=== PATIENT | male | born 1960 | race Caucasian/White ===

== ENCOUNTER 2016-12-27 08:05 | Day surgery (SDC) | payer OTHER ==
[2016-12-21 09:01] VITALS: BP 116/79
[~2016-12-27] VITALS: Ht 172.7 cm; Wt 110.5 kg
[~2016-12-27 08:05] MED LIST: HYDR-3241 PO; IBUP800T PO; LIDOCAINE 0.5%-EPI 1:200K, 50ML ONE; LIDOCAINE/PF 1%-EPI 1:200K, 30ML ONE; LISI-167 PO; ROPIvacaine/PF 0.5%, 30 ML ONE; TOPI100T94 PO; TRAZ50TA18 PO
[2016-12-27] MEDS ORDERED: LACTATED RINGERS 1,000 ML IV SCH (08:37)
[2016-12-27] MEDS ORDERED: FENTANYL PF 250 MCG/5ML ONE (08:39)
[2016-12-27 08:40] VITALS: BP 116/79
[2016-12-27] MEDS ORDERED: MIDAZOLAM 1 MG/ML, 2ML ONE (08:40)
[2016-12-27] MEDS ORDERED: HYDROcodone/APAP 7.5-325MG/15ML UDC PO PRN (09:30)
[2016-12-27] MEDS ORDERED: MEPERIDINE/PF 25MG/0.5ML IVPush PRN (09:30)
[2016-12-27] MEDS ORDERED: hydrALAzine 20 MG/ML, 1ML IV PRN (09:30)
[2016-12-27] MEDS ORDERED: ONDANSETRON 2MG/ML, 2ML IVPush PRN (09:30)
[2016-12-27] MEDS ORDERED: OXYcodone 5 MG/5 ML ORAL.SOL UDC PO PRN (09:30)
[2016-12-27] MEDS ORDERED: FENTANYL PF 100 MCG/2ML IV PRN (09:30)
[2016-12-27] MEDS ORDERED: EPHEDRINE 50 MG/ML, 1ML IVPush PRN (09:30)
[2016-12-27] MEDS ORDERED: LABETALOL 5MG/ML, 20ML IV PRN (09:30)
[2016-12-27] MEDS ORDERED: MIDAZOLAM 1 MG/ML, 2ML IV PRN (09:30)
[2016-12-27] MEDS ORDERED: ACETAMINOPHEN 325 MG TABLET PO PRN (09:30)
[2016-12-27] MEDS ORDERED: HYDROmorphone 1 MG/ML, 1ML IV PRN (09:30)
[2016-12-27] MEDS ORDERED: PROMETHAZINE 25 MG/ML, 1ML IV PRN (09:30)
[2016-12-27] MEDS ORDERED: FENTANYL PF 100 MCG/2ML ONE (10:08)
[2016-12-27] MEDS ORDERED: HYDROcodone/APAP 7.5-325MG/15ML UDC ONE (10:09)
[2016-12-27] MEDS ORDERED: CEFAZOLIN 1,000 MG ONE (11:06)
[2016-12-27] MEDS ORDERED: ONDANSETRON 2MG/ML, 2ML ONE (11:06)
[2016-12-27] MEDS ORDERED: KETOROLAC 30 MG/1 ML ONE (11:06)
[2016-12-27] MEDS ORDERED: DEXAMETHASONE 4 MG/ML, 1ML ONE (11:06)
[2016-12-27] MEDS ORDERED: LABETALOL 5MG/ML 40ML VIAL ONE (11:06)
[2016-12-27] MEDS ORDERED: PROPOFOL 10 MG/ML, 20ML ONE (11:06)
== END 2016-12-27 12:10 | disposition home or self-care (01) ==
LOC: OUT 08:05
PROVIDERS: ATTEND Orthopaedic Surgery
DX: S83.232A Complex tear of medial meniscus, current injury, left knee, initial encounter (principal); M94.262 Chondromalacia, left knee; M65.862 Other synovitis and tenosynovitis, left lower leg; W01.0XXA Fall on same level from slipping, tripping and stumbling without subsequent striking against object, initial encounter; Y93.9 Activity, unspecified; Y92.9 Unspecified place or not applicable; Y99.9 Unspecified external cause status; I10 Essential (primary) hypertension; G47.33 Obstructive sleep apnea (adult) (pediatric); M50.20 Other cervical disc displacement, unspecified cervical region
CPT/HCPCS: 29881; J0690; J1100; J1885; J2250; J2405; J2704; J2795; J3010; J3490; J7120

== ENCOUNTER → 2017-08-22 | Outpatient (CLI) | payer OTHER ==
[~2017-08-22] MED LIST changes: +CYAN1TAB29 PO; +GABA300C10 PO; +IBUP-1223 PO; -IBUP800T PO; -LIDOCAINE 0.5%-EPI 1:200K, 50ML ONE; -LIDOCAINE/PF 1%-EPI 1:200K, 30ML ONE; -ROPIvacaine/PF 0.5%, 30 ML ONE; +TOPI100T8 PO; -TOPI100T94 PO; +zinc PO
[2017-08-22 14:03] LABS: BASOPHILS # (AUTO) 0.02 x10^3/uL (0-0.1); BASOPHILS % (AUTO) 0 % (0-1); EOSINOPHILS # (AUTO) 0.12 x10^3/uL (0-0.4); EOSINOPHILS % (AUTO) 1 % (1-7); LYMPHOCYTES # (AUTO) 1.25 x10^3/uL (1-3.4); LYMPHOCYTES % (AUTO) 14 % (22-44); MD NO; MEAN CORPUSCULAR HEMOGLOBIN 30.9 pg (27.5-34.5); MEAN CORPUSCULAR HGB CONC 33.7 g/dL (33.2-36.2); MEAN CORPUSCULAR VOLUME 91.9 fL (81-97); MONOCYTES # (AUTO) 0.67 x10^3/uL (0.2-0.8); MONOCYTES % (AUTO) 8 % (2-9); NEUTROPHILS # (AUTO) 6.81 x10^3/uL (1.8-6.8); NEUTROPHILS % (AUTO) 77 % (42-75); PLATELET COUNT 224 x10^3/uL (130-400); RED BLOOD COUNT 5.34 x10^6/uL (4.38-5.82); RED CELL DISTRIBUTION WIDTH 14.5 % (9.4-14.8)
[2017-08-22 14:15] LABS: ALBUMIN 3.9 g/dL (3.4-5.0); ANION GAP 9 mmol/L (5-15); CALCIUM 9.4 mg/dL (8.5-10.1); CHLORIDE 107 mmol/L (98-107)
[2017-08-22 14:19] LABS: ALANINE AMINOTRANSFERASE 30 U/L (12-78); ALKALINE PHOSPHATASE 61 U/L (45-117); BILIRUBIN,TOTAL 0.6 mg/dL (0.2-1.0); TOTAL PROTEIN 7.5 g/dL (6.4-8.2)
[2017-08-22 14:50] LABS: PROTHROMBIN TIME 10.4 Seconds (9.6-11.5)
== END | disposition home or self-care (01) ==
LOC: STAR 12:59
PROVIDERS: ATTEND Neurological Surgery
DX: Z01.818 Encounter for other preprocedural examination (principal); M48.02 Spinal stenosis, cervical region; J98.11 Atelectasis
CPT/HCPCS: 36415; 71046; 80053; 85025; 85610; 85730; 93005

== ENCOUNTER 2017-09-05 05:37 | Inpatient (IN) | payer OTHER ==
[2017-08-22 13:29] VITALS: BP 146/93
[~2017-09-05] VITALS: Ht 172.7 cm; Wt 110.0 kg
[2017-09-05] MEDS ORDERED: LACTATED RINGERS 1,000 ML IV SCH (06:27)
[2017-09-05] MEDS ORDERED: LIDOCAINE 1%, 2ML SQ PRN (06:30)
[2017-09-05] MEDS ORDERED: LIDOCAINE 1%, 2ML ONE (06:32)
[2017-09-05] MEDS ORDERED: BUPIVACAINE/PF 0.5% ONE (06:41)
[2017-09-05] MEDS ORDERED: EPINEPHRINE 1 MG/ML, 1ML ONE (06:42)
[2017-09-05] MEDS ORDERED: THROMBIN 5,000 UNIT VIAL TP ONE (06:42)
[2017-09-05] MEDS ORDERED: BACITRACIN 50,000 UNIT ONE (06:42)
[2017-09-05] MEDS ORDERED: PROPOFOL 50 ML ONE ×2 (07:01→08:59)
[2017-09-05] MEDS ORDERED: MIDAZOLAM 1 MG/ML, 2ML ONE (07:01)
[2017-09-05] MEDS ORDERED: FENTANYL PF 250 MCG/5ML ONE (07:01)
[2017-09-05] MEDS ORDERED: MEPERIDINE/PF 25MG/0.5ML IVPush PRN (07:30)
[2017-09-05] MEDS ORDERED: LORazepam 2 MG/ML, 1ML IVPush PRN (07:30)
[2017-09-05] MEDS ORDERED: ACETAMINOPHEN 325 MG TABLET PO PRN (07:30)
[2017-09-05] MEDS ORDERED: HYDROcodone/APAP 7.5-325MG/15ML UDC PO PRN (07:30)
[2017-09-05] MEDS ORDERED: ONDANSETRON 2MG/ML, 2ML IVPush PRN (07:30)
[2017-09-05] MEDS ORDERED: OXYcodone 5 MG/5 ML ORAL.SOL UDC PO PRN (07:30)
[2017-09-05] MEDS ORDERED: PROMETHAZINE 25 MG/ML, 1ML IV PRN (07:30)
[2017-09-05] MEDS ORDERED: HYDROmorphone 1 MG/ML, 1ML IV PRN (07:30)
[2017-09-05] MEDS ORDERED: LABETALOL 5MG/ML, 20ML IV PRN (07:30)
[2017-09-05] MEDS ORDERED: hydrALAzine 20 MG/ML, 1ML IV PRN (07:30)
[2017-09-05] MEDS ORDERED: HYDROmorphone 2 MG/ML, 1ML ONE (08:07)
[2017-09-05] MEDS ORDERED: NEOSTIGMINE 1 MG/ML, 10ML ONE (08:26)
[2017-09-05] MEDS ORDERED: SUCCINYLCHOLINE 20 MG/ML, 10ML ONE (08:26)
[2017-09-05] MEDS ORDERED: ONDANSETRON 2MG/ML, 2ML ONE (08:26)
[2017-09-05] MEDS ORDERED: GLYCOPYRROLATE 0.2MG/1ML, 5ML ONE (08:26)
[2017-09-05] MEDS ORDERED: DEXAMETHASONE 4 MG/ML, 1ML ONE (08:26)
[2017-09-05] MEDS ORDERED: CEFAZOLIN 1,000 MG ONE (08:26)
[2017-09-05] MEDS ORDERED: ROCURONIUM 10 MG/ML,10ML ONE (08:26)
[2017-09-05] MEDS ORDERED: PROPOFOL 10 MG/ML, 20ML ONE (08:26)
[2017-09-05] MEDS ORDERED: ACETAMINOPHEN 650 MG/20.3 ML UDC ONE (10:51)
[2017-09-05] MEDS ORDERED: OXYcodone 5 MG/5 ML ORAL.SOL UDC ONE (10:52)
[2017-09-05] MEDS: FENTANYL PF 100 MCG/2ML IV PRN ×2 (10:56→11:25)
[2017-09-05] MEDS ORDERED: FENTANYL PF 100 MCG/2ML ONE (10:59)
[2017-09-05] MEDS ORDERED: HYDROmorphone 2 MG/ML, 1ML IM PRN (13:00)
[2017-09-05] MEDS ORDERED: ONDANSETRON 2MG/ML, 2ML IV PRN (13:00)
[2017-09-05] MEDS ORDERED: BISACODYL 10 MG SUPP PR PRN (13:00)
[2017-09-05] MEDS ORDERED: MAGNESIUM HYDROXIDE 8%, 30ML UDC PO PRN (13:00)
[2017-09-05] MEDS ORDERED: OXYcodone/APAP 5/325MG TABLET PO PRN (13:00)
[2017-09-05] MEDS ORDERED: TRAZODONE 100MG TABLET PO PRN (13:00)
[2017-09-05] MEDS ORDERED: HYDROcodone/APAP 5/325 TABLET PO PRN (13:00)
[2017-09-05] MEDS ORDERED: METHOCARBAMOL 750 MG TABLET PO PRN (13:00)
[2017-09-05] MEDS ORDERED: DIPHENHYDRAMINE 50 MG/ML, 1ML IM PRN (13:00)
[2017-09-05] MEDS ORDERED: PROMETHAZINE 25 MG/ML, 1ML IM PRN (13:00)
[2017-09-05] MEDS ORDERED: DIPHENHYDRAMINE 50 MG CAPSULE PO PRN (13:00)
[2017-09-05] MEDS: CEFAZOLIN PMX 1GM/50ML 50 ML IVPB SCH (17:17)
[2017-09-05] MEDS: NS + 20MEQ KCL 1,000 ML IV SCH (17:17)
[2017-09-05 20:18] VITALS: BP 145/81
[2017-09-05] MEDS ORDERED: ZOLPIDEM 5MG TABLET PO PRN (21:00)
[2017-09-06] MEDS: NS + 20MEQ KCL 1,000 ML IV SCH ×2 (01:11→06:32)
[2017-09-06] MEDS: CEFAZOLIN PMX 1GM/50ML 50 ML IVPB SCH (01:11)
[2017-09-06 03:54] VITALS: BP 120/76
[2017-09-06 07:35] VITALS: BP 126/78
[2017-09-06] MEDS: GABAPENTIN 300 MG CAPSULE PO SCH (08:48)
[2017-09-06] MEDS: LISINOPRIL 10 MG TABLET PO SCH (08:48)
[2017-09-06] MEDS: SENNA/DOCUSATE TABLET PO SCH (08:49)
[2017-09-06] MEDS: ZINC SULFATE 220 MG CAPSULE PO SCH (08:53)
[2017-09-06] MEDS: MULTIVITS,STRESS FORMULA 1 TABLET PO SCH (08:53)
[2017-09-06] MEDS ORDERED: HYDR-3307 PO (09:40)
[2017-09-06 13:07] VITALS: BP 113/77
[2017-09-06] MEDS: HYDROcodone/APAP 10/325 MG TABLET PO PRN (16:14)
[2017-09-06 19:12] LABS: MICROSCOPIC NOT IND
[2017-09-06 19:17] LABS: CULTURE INDICATED? NO
[2017-09-06 19:47] VITALS: BP 134/84
[2017-09-06] MEDS: HYDROmorphone 2MG TABLET PO PRN ×2 (21:19→23:28)
[2017-09-06 23:36] VITALS: BP 149/87
[2017-09-07] MEDS: HYDROcodone/APAP 10/325 MG TABLET PO PRN ×4 (01:34→21:39)
[2017-09-07] MEDS: NS + 20MEQ KCL 1,000 ML IV SCH (02:08)
[2017-09-07 04:05] VITALS: BP 124/87
[2017-09-07] MEDS: HYDROmorphone 2MG TABLET PO PRN (05:11)
[2017-09-07 05:13] LABS: MEAN CORPUSCULAR HEMOGLOBIN 31.6 pg (27.5-34.5); MEAN CORPUSCULAR HGB CONC 33.8 g/dL (33.2-36.2); MEAN CORPUSCULAR VOLUME 93.3 fL (81-97); MEAN PLATELET VOLUME 8.1 fL (7.4-10.4); PLATELET COUNT 178 x10^3/uL (130-400); RED BLOOD COUNT 4.74 x10^6/uL (4.38-5.82)
[2017-09-07 05:52] LABS: BASOPHILS % (AUTO) 0 % (0-1); EOSINOPHILS # (AUTO) 0.02 x10^3/uL (0-0.4); EOSINOPHILS % (AUTO) 0 % (1-7); LYMPHOCYTES # (AUTO) 1.34 x10^3/uL (1-3.4); LYMPHOCYTES % (AUTO) 7 % (22-44); MD SCAN; MONOCYTES # (AUTO) 1.63 x10^3/uL (0.2-0.8); MONOCYTES % (AUTO) 8 % (2-9); NEUTROPHILS # (AUTO) 16.69 x10^3/uL (1.8-6.8); NEUTROPHILS % (AUTO) 85 % (42-75)
[2017-09-07 06:36] VITALS: BP 133/85
[2017-09-07] MEDS: GABAPENTIN 300 MG CAPSULE PO SCH (08:59)
[2017-09-07] MEDS: SENNA/DOCUSATE TABLET PO SCH (08:59)
[2017-09-07] MEDS: MULTIVITS,STRESS FORMULA 1 TABLET PO SCH (08:59)
[2017-09-07] MEDS: LISINOPRIL 10 MG TABLET PO SCH (08:59)
[2017-09-07] MEDS: ZINC SULFATE 220 MG CAPSULE PO SCH (09:00)
[2017-09-07] MEDS ORDERED: BISACODYL 10 MG SUPP PR PRN (09:00)
[2017-09-07] MEDS: DEXAMETHASONE 4 MG/ML, 1ML IVPush SCH ×3 (09:49→21:39)
[2017-09-07] MEDS: FAMOTIDINE 20 MG/2 ML IVPush SCH ×2 (09:49→21:39)
[2017-09-07 12:17] VITALS: BP 137/84
[2017-09-07] MEDS ORDERED: ACETAMINOPHEN 325 MG TABLET PO PRN (13:00)
[2017-09-07] MEDS ORDERED: PHARMACY MAY ADJ FOR RENAL FX MC PRN (13:00)
[2017-09-07] MEDS ORDERED: VANCOMYCIN PER PHARMACY MC PRN (13:00)
[2017-09-07] MEDS ORDERED: PHARMACOKINETIC MONITORING MC PRN (14:00)
[2017-09-07] MEDS ORDERED: PHARMACOKINETIC CONSULTATION MC ONE (14:00)
[2017-09-07] MEDS ORDERED: GUAIFENESIN/COD200MG-20MG/10ML LIQUID PO PRN (14:00)
[2017-09-07] MEDS: PIPERACILLIN/TAZO/PMX 4.5GM 100 ML IVPB SCH ×2 (14:13→21:39)
[2017-09-07 14:18] LABS: ANION GAP 8 mmol/L (5-15); CALCIUM 9.3 mg/dL (8.5-10.1); CHLORIDE 106 mmol/L (98-107); CREATININE 0.95 mg/dL (0.7-1.3)
[2017-09-07] MEDS: GUAIFENESIN 200 MG TABLET PO SCH ×2 (15:19→21:39)
[2017-09-07] MEDS: VANCOMYCIN 2,000 MG in SODIUM CHLORIDE 0.9% 500 ML IV SCH (15:19)
[2017-09-07] MEDS: SODIUM CHLORIDE 0.9% 1,000 ML IV SCH (18:11)
[2017-09-07 20:11] VITALS: BP 150/85
[2017-09-08] MEDS: DIPHENHYDRAMINE 50 MG/ML, 1ML IVPush PRN (00:34)
[2017-09-08] MEDS: DEXAMETHASONE 4 MG/ML, 1ML IVPush SCH ×4 (03:29→22:14)
[2017-09-08] MEDS: VANCOMYCIN 2,000 MG in SODIUM CHLORIDE 0.9% 500 ML IV SCH ×2 (03:29→15:36)
[2017-09-08 03:37] VITALS: BP 120/79
[2017-09-08 05:31] LABS: ANION GAP 6 mmol/L (5-15); CALCIUM 8.9 mg/dL (8.5-10.1); CHLORIDE 109 mmol/L (98-107)
[2017-09-08 05:34] LABS: ALANINE AMINOTRANSFERASE 19 U/L (12-78); ALKALINE PHOSPHATASE 54 U/L (45-117); BILIRUBIN,TOTAL 1.3 mg/dL (0.2-1.0); TOTAL PROTEIN 6.9 g/dL (6.4-8.2)
[2017-09-08 05:37] LABS: BASOPHILS # (AUTO) 0.02 x10^3/uL (0-0.1); BASOPHILS % (AUTO) 0 % (0-1); EOSINOPHILS % (AUTO) 0 % (1-7); LYMPHOCYTES # (AUTO) 0.59 x10^3/uL (1-3.4); LYMPHOCYTES % (AUTO) 4 % (22-44); MD NO; MEAN CORPUSCULAR HEMOGLOBIN 31.6 pg (27.5-34.5); MEAN CORPUSCULAR HGB CONC 33.9 g/dL (33.2-36.2); MEAN PLATELET VOLUME 8.5 fL (7.4-10.4); MONOCYTES # (AUTO) 0.71 x10^3/uL (0.2-0.8); MONOCYTES % (AUTO) 5 % (2-9); NEUTROPHILS % (AUTO) 91 % (42-75); PLATELET COUNT 170 x10^3/uL (130-400); RED BLOOD COUNT 4.38 x10^6/uL (4.38-5.82); RED CELL DISTRIBUTION WIDTH 14.6 % (9.4-14.8)
[2017-09-08] MEDS: PIPERACILLIN/TAZO/PMX 4.5GM 100 ML IVPB SCH ×3 (06:04→22:19)
[2017-09-08] MEDS: GUAIFENESIN 200 MG TABLET PO SCH ×4 (06:04→22:14)
[2017-09-08] MEDS: SODIUM CHLORIDE 0.9% 1,000 ML IV SCH (06:04)
[2017-09-08] MEDS: HYDROcodone/APAP 10/325 MG TABLET PO PRN ×4 (06:13→22:15)
[2017-09-08 06:41] VITALS: BP 145/84
[2017-09-08] MEDS: MULTIVITS,STRESS FORMULA 1 TABLET PO SCH (08:53)
[2017-09-08] MEDS: ZINC SULFATE 220 MG CAPSULE PO SCH (08:53)
[2017-09-08] MEDS: FAMOTIDINE 20 MG/2 ML IVPush SCH ×2 (08:54→22:14)
[2017-09-08] MEDS: SENNA/DOCUSATE TABLET PO SCH (08:54)
[2017-09-08] MEDS: GABAPENTIN 300 MG CAPSULE PO SCH (08:54)
[2017-09-08] MEDS: LISINOPRIL 10 MG TABLET PO SCH (08:54)
[2017-09-08 12:55] VITALS: BP 134/80
[2017-09-08] MEDS ORDERED: NS + 20MEQ KCL 1,000 ML IV SCH (13:00)
[2017-09-08] MEDS: AMPICILLIN/SULBACTAM 3 GM in SODIUM CHLORIDE 0.9% 100 ML IV SCH (18:00)
[2017-09-08 20:49] VITALS: BP 129/80
[2017-09-08] MEDS: DOXYCYCLINE 100MG TABLET PO SCH (22:14)
[2017-09-09] MEDS: SODIUM CHLORIDE 0.9% 1,000 ML IV SCH ×2 (00:05→12:07)
[2017-09-09] MEDS: AMPICILLIN/SULBACTAM 3 GM in SODIUM CHLORIDE 0.9% 100 ML IV SCH ×2 (00:06→07:14)
[2017-09-09] MEDS: DIPHENHYDRAMINE 50 MG/ML, 1ML IVPush PRN (00:06)
[2017-09-09 01:12] VITALS: BP 120/80
[2017-09-09] MEDS: DEXAMETHASONE 4 MG/ML, 1ML IVPush SCH ×2 (03:26→09:49)
[2017-09-09 05:15] LABS: BASOPHILS % (AUTO) 0 % (0-1); EOSINOPHILS % (AUTO) 0 % (1-7); LYMPHOCYTES % (AUTO) 5 % (22-44); MD NO; MEAN CORPUSCULAR HEMOGLOBIN 31.5 pg (27.5-34.5); MEAN CORPUSCULAR HGB CONC 33.9 g/dL (33.2-36.2); MEAN CORPUSCULAR VOLUME 93.1 fL (81-97); MEAN PLATELET VOLUME 8.8 fL (7.4-10.4); MONOCYTES # (AUTO) 0.44 x10^3/uL (0.2-0.8); MONOCYTES % (AUTO) 4 % (2-9); NEUTROPHILS # (AUTO) 10.54 x10^3/uL (1.8-6.8); NEUTROPHILS % (AUTO) 91 % (42-75); PLATELET COUNT 188 x10^3/uL (130-400); RED BLOOD COUNT 4.13 x10^6/uL (4.38-5.82); RED CELL DISTRIBUTION WIDTH 14.7 % (9.4-14.8)
[2017-09-09 05:19] LABS: CHLORIDE 109 mmol/L (98-107)
[2017-09-09 05:34] LABS: ALANINE AMINOTRANSFERASE 32 U/L (12-78); ALKALINE PHOSPHATASE 63 U/L (45-117); ANION GAP 8 mmol/L (5-15); BILIRUBIN,TOTAL 0.8 mg/dL (0.2-1.0); CALCIUM 8.7 mg/dL (8.5-10.1); CREATININE 0.88 mg/dL (0.7-1.3); TOTAL PROTEIN 6.9 g/dL (6.4-8.2)
[2017-09-09] MEDS: GUAIFENESIN 200 MG TABLET PO SCH ×2 (06:04→10:49)
[2017-09-09] MEDS: HYDROcodone/APAP 10/325 MG TABLET PO PRN ×2 (06:04→10:51)
[2017-09-09] MEDS: PIPERACILLIN/TAZO/PMX 4.5GM 100 ML IVPB SCH (06:06)
[2017-09-09 07:19] VITALS: BP 109/69
[2017-09-09] MEDS ORDERED: METH4TAB2 PO (08:41)
[2017-09-09] MEDS: GABAPENTIN 300 MG CAPSULE PO SCH (08:49)
[2017-09-09] MEDS: SENNA/DOCUSATE TABLET PO SCH (08:50)
[2017-09-09] MEDS: LISINOPRIL 10 MG TABLET PO SCH (08:50)
[2017-09-09] MEDS: DOXYCYCLINE 100MG TABLET PO SCH (08:50)
[2017-09-09] MEDS: FAMOTIDINE 20 MG/2 ML IVPush SCH (08:52)
[2017-09-09] MEDS: ZINC SULFATE 220 MG CAPSULE PO SCH (09:23)
[2017-09-09] MEDS: MULTIVITS,STRESS FORMULA 1 TABLET PO SCH (09:23)
[2017-09-09] MEDS ORDERED: methylPREDNISolone 4mg DOSE PACK PO SCH (10:00)
[2017-09-09] MEDS ORDERED: METH750T87 PO (10:04)
[2017-09-09] MEDS ORDERED: DOXY100T10 PO (10:04)
[2017-09-09] MEDS ORDERED: AMOX1TAB64 PO (10:04)
[2017-09-09] MEDS ORDERED: HYDR-3307 PO (12:19)
[2017-09-09 12:20] VITALS: BP 145/79
== END 2017-09-09 12:35 | disposition home or self-care (01) | DRG 853 ==
LOC: ORIP 05:37 → 4NOR 12:52
PROVIDERS: ADMIT Neurological Surgery; ATTEND Neurological Surgery
PROC: 0RG20A0 Fusion of 2 or more Cervical Vertebral Joints with Interbody Fusion Device, Anterior Approach, Anterior Column, Open Approach (ICD-10-PCS; 2017-09-05)
PROC: 0RG2070 Fusion of 2 or more Cervical Vertebral Joints with Autologous Tissue Substitute, Anterior Approach, Anterior Column, Open Approach (ICD-10-PCS; 2017-09-05)
PROC: 4A11X4G Monitoring of Peripheral Nervous Electrical Activity, Intraoperative, External Approach (ICD-10-PCS; 2017-09-05)
PROC: 0RB30ZZ Excision of Cervical Vertebral Disc, Open Approach (ICD-10-PCS; principal; 2017-09-05 07:30)
PROC: 5A09357 Assistance with Respiratory Ventilation, Less than 24 Consecutive Hours, Continuous Positive Airway Pressure (ICD-10-PCS; 2017-09-06)
PROC: 5A09357 Assistance with Respiratory Ventilation, Less than 24 Consecutive Hours, Continuous Positive Airway Pressure (ICD-10-PCS; 2017-09-07)
PROC: 5A09357 Assistance with Respiratory Ventilation, Less than 24 Consecutive Hours, Continuous Positive Airway Pressure (ICD-10-PCS; 2017-09-08)
PROC: 5A09357 Assistance with Respiratory Ventilation, Less than 24 Consecutive Hours, Continuous Positive Airway Pressure (ICD-10-PCS; 2017-09-09)
DX: A41.9 Sepsis, unspecified organism (principal); J18.9 Pneumonia, unspecified organism; R13.10 Dysphagia, unspecified; M48.02 Spinal stenosis, cervical region; M47.22 Other spondylosis with radiculopathy, cervical region; G47.00 Insomnia, unspecified; G47.33 Obstructive sleep apnea (adult) (pediatric); M40.292 Other kyphosis, cervical region; I10 Essential (primary) hypertension
CPT/HCPCS: 36415; 71046; 72040; 80048; 80053; 81003; 83605; 83735; 84100; 84145; 85025; 87040; 95938; 95941; C1713; C1776; J0171; J0295; J0690; J1100; J1170; J2250; J2270; J2405; J2543; J2704; J2710; J3010; J3370; J3480; J3490; J7509; C1781; J0330; J1200; J7030; J7040; J7120; S0028